=== PATIENT | female | born 1960 | race Caucasian/White ===

== ENCOUNTER 2016-10-01 13:47 | Emergency (ER) | payer OTHER ==
[~2016-10-01] VITALS: Ht 162.6 cm; Wt 69.5 kg
[2016-10-01 13:51] VITALS: Ht 162.6 cm; Wt 69.5 kg
[2016-10-01] MEDS ORDERED: ASPIRIN 325 MG TAB PO STA (14:45)
[2016-10-01] MEDS ORDERED: morphine 2 MG INJ IV STA (14:45)
[2016-10-01] MEDS ORDERED: ONDANSETRON 4 MG INJ IV STA (14:45)
[2016-10-01 15:28] LABS: BASOPHILS % 0.3 % (0.0-2.0); EOSINOPHILS # 0.2 10^3/ul (0.0-0.5); EOSINOPHILS % 1.8 % (0.0-7.0); HEMATOCRIT 37.5 % (37.0-47.0); HEMOGLOBIN 12.6 g/dl (12.0-16.0); LYMPHOCYTES # 0.7 10^3/ul (0.8-2.9); LYMPHOCYTES % 7.4 % (15.0-51.0); MEAN CORPUSCULAR HEMOGLOBIN 29.1 pg (29.0-33.0); MEAN CORPUSCULAR HGB CONC 33.4 g/dl (32.0-37.0); MEAN PLATELET VOLUME 6.8 fl (7.4-10.4); MONOCYTE # 0.7 10^3/ul (0.3-0.9); MONOCYTES % 7.3 % (0.0-11.0); NEUTROPHIL # 7.7 10^3/ul (1.6-7.5); NEUTROPHILS % 83.2 % (39.0-77.0); PLATELET COUNT 294 10^3/UL (140-440); RED BLOOD COUNT 4.31 10^6/ul (4.20-5.40); RED CELL DISTRIBUTION WIDTH 13.9 % (11.5-14.5); UNCORRECTED WBC 9.3 10^3/ul (4.8-10.8); WHITE BLOOD COUNT 9.3 10^3/ul (4.8-10.8)
[2016-10-01 15:30] LABS: CONDITION 1
--- NOTE | 2016-10-01 15:34 | RADRPT ---
PROCEDURE: XR Chest. CLINICAL INDICATION: Patient experiencing Chest Pain. TECHNIQUE: Single frontal view of the chest was obtained. COMPARISON: None. FINDINGS: The cardiomediastinal silhouette is normal size. Pulmonary vasculature is within normal limits. Th e lungs are clear. No signs of pleural fluid or pneumothorax are seen. The osseous structures and soft tissues are unre markable. IMPRESSION: No evidence for active cardiopulmonary disease. RPTAT: DD .Chay Miguel MD, MD Date Time Electronically viewed and signed by .Chay Miguel MD, on 10/01/2016 15:33 .T/
[2016-10-01 15:40] LABS: CREATINE KINASE 71 IU/L (23-200)
[2016-10-01 15:45] LABS: INR 1.06; PROTIME 13.8 Sec (12.2-14.2); PT RATIO 1.1
[2016-10-01 15:46] LABS: PARTIAL THROMBOPLASTIN TIME 27.9 Sec (25.0-35.0)
[2016-10-01 15:50] LABS: CK-MB 1.42 ng/ml (0.0-2.4)
[2016-10-01 15:55] LABS: TROPONIN-I < 0.010 ng/ml (0.00-0.12)
[2016-10-01 16:01] LABS: D-DIMER < 220.00 ng/ml (<460)
[2016-10-01 16:07] LABS: ALBUMIN 4.3 g/dl (3.3-4.9); POTASSIUM 3.7 mmol/L (3.5-5.1)
[2016-10-01 16:09] LABS: CREATININE 0.73 mg/dl (0.44-1.00)
[2016-10-01 16:10] LABS: ALBUMIN/GLOBULIN RATIO 1.38; BILIRUBIN,INDIRECT 0.1 mg/dl (0-1.1); BILIRUBIN,TOTAL 0.1 mg/dl (0.2-1.3); TOTAL PROTEIN 7.4 g/dl (6.1-8.1)
[2016-10-01 16:11] LABS: CALCIUM 9.1 mg/dl (8.4-10.2)
--- NOTE | 2016-10-01 17:34 | ERD ---
ER Documentation Chief Complaint Date/Time DATE: 10/01/16 TIME: 17:28 Chief Complaint chest pain x 2 hrs and nausea HPI Patient is a 56-year-old female who presents to the emergency department complaining of back and chest pain. She states it has been constant since this morning. She cannot describe the pain. She states it is just a "pain". She states nothing makes it better, nothing makes it worse. She denies any fever, coughing, congestion, dyspnea, hemoptysis, chest or back trauma, rhinorrhea, sore throat, or otalgia. She denies any dizziness, loss of consciousness, swelling of the extremities, calf pain. Apparently while she was in the waiting room she began to experience tingling in her hands and feet and the staff became very concerned so they rushed her back. She did not have any objective findings on exam and her symptoms had already resolved by the time that she was brought back. ROS All systems reviewed and are negative except as per history of present illness. Medications Home Meds No Active Prescriptions or Reported Meds Allergies Allergies: Coded Allergies: amoxicillin (Verified Allergy, Intermediate, dizziness, 10/01/16) PMhx/Soc Medical and Surgical Hx: pt denies Medical Hx, pt denies Surgical Hx Hx Alcohol Use: No Hx Substance Use: No Hx Tobacco Use: No Smoking Status: Never smoker FmHx Family History: No diabetes Physical Exam Vitals Vital Signs Date Time Temp Pulse Resp B/P Pulse Ox O2 Delivery O2 Flow Rate FiO2 10/01/16 14:55 Nasal Cannula 2 10/01/16 13:51 97.8 116 20 169/85 99 Physical Exam Const: Well-developed well-nourished female in no acute distress, appears anxious. Head: Atraumatic normocephalic Eyes: Normal Conjunctiva ENT: Normal External Ears, Nose and Mouth. Neck: Full range of motion..~ No meningismus. Resp: Clear to auscultation bilaterally Cardio: Regular rate and rhythm, no murmurs, no tenderness to palpation of the chest wall Abd: Soft, non tender, non distended. Normal bowel sounds Skin: No petechiae or rashes Back: No midline or flank tenderness, no pain on palpation Ext: No cyanosis, or edema, no calf pain negative Homans sign Neur: Awake and alert Psych: Normal Mood and anxious affect Result Diagram: 10/01/16 1500 10/01/16 1500 Results 24 hrs Laboratory Tests Test 10/01/16 15:00 Activated Partial Thromboplast Time 27.9Sec Alanine Aminotransferase (ALT/SGPT) 27IU/L Albumin 4.3g/dl Albumin/Globulin Ratio 1.38 Alkaline Phosphatase 62IU/L Anion Gap 17 Aspartate Amino Transf (AST/SGOT) 19IU/L Basophils # 0.010^3/ul Basophils % 0.3% Blood Morphology Comment Blood Urea Nitrogen 14mg/dl Calcium Level 9.1mg/dl Carbon Dioxide Level 24mmol/L Chloride Level 103mmol/L Creatine Kinase 71IU/L Creatine Kinase Index 2.0 Creatinine 0.73mg/dl Creatinine Kinase MB (Mass) 1.42ng/ml D-Dimer < 220.00ng/ml D-Dimer Comment Direct Bilirubin 0.00mg/dl Eosinophils # 0.210^3/ul Eosinophils % 1.8% Globulin 3.10g/dl Glucose Level 114mg/dl Hematocrit 37.5% Hemoglobin 12.6g/dl INR International Normalized Ratio 1.06 Indirect Bilirubin 0.1mg/dl Lymphocytes # 0.710^3/ul Lymphocytes % 7.4% Mean Corpuscular Hemoglobin 29.1pg Mean Corpuscular Hemoglobin Concent 33.4g/dl Mean Corpuscular Volume 87.0fl Mean Platelet Volume 6.8fl Monocytes # 0.710^3/ul Monocytes % 7.3% Neutrophils # 7.710^3/ul Neutrophils % 83.2% Nucleated Red Blood Cells # 0.010^3/ul Nucleated Red Blood Cells % 0.0/100WBC Platelet Count 93253^3/UL Potassium Level 3.7mmol/L Prothrombin Time 13.8Sec Prothrombin Time Ratio 1.1 Red Blood Count 4.3110^6/ul Red Cell Distribution Width 13.9% Sodium Level 140mmol/L Total Bilirubin 0.1mg/dl Total Protein 7.4g/dl Troponin I < 0.010ng/ml White Blood Count 9.310^3/ul Current Medications Medications (Trade) Dose Ordered Sig/Aldo Route PRN Reason Start Time Stop Time Status Last Admin Dose Admin Aspirin (Aspirin) 325 mg ONCE STAT PO 10/01/16 14:45 10/01/16 14:47 DC 10/01/16 15:05 Morphine Sulfate (morphine) 2 mg ONCE STAT IV 10/01/16 14:45 10/01/16 14:47 DC 10/01/16 15:05 Ondansetron HCl (Zofran Inj) 4 mg ONCE STAT IV 10/01/16 14:45 10/01/16 14:47 DC 10/01/16 15:04 IV Flush 10 ml 10 ml STK-MED ONCE .ROUTE 10/01/16 18:32 10/01/16 18:33 DC 10/01/16 18:44 Sodium Chloride (NS) 100 ml @ ud STK-MED ONCE .ROUTE 10/01/16 18:32 10/01/16 18:33 DC 10/01/16 18:44 Iohexol (Omnipaque 300mg/ ml) 150 ml STK-MED ONCE .ROUTE 10/01/16 18:32 10/01/16 18:33 DC 10/01/16 18:44 Procedures/MDM EKG: Rate/Rhythm: Sinus tachycardia at 109 bpm no acute ischemia noted no PE pattern noted QRS, ST, T-waves: No changes consistent w/ acute ischemia Impression: No evidence of ischemia or arrhythmia Departure Diagnosis: Primary Impression: Chest pain Chest pain type: unspecified Qualified Code: R07.9 - Chest pain, unspecified type Additional Impression: Back pain Back pain location: thoracic back pain Chronicity: acute Back pain laterality: unspecified Qualified Code: M54.6 - Acute thoracic back pain, unspecified back pain laterality Condition: Good Patient Instructions: Back Pain (Acute Or Chronic), Chest Pain, Uncertain Cause Additional Instructions: Please take medications as prescribed and schedule a follow-up appointment with your primary care physician for any further testing might be necessary. Activity as tolerated. Return to the emergency department for any new or worsening symptoms. MERVIN HASKINS Oct 01, 2016 17:34
[2016-10-01] MEDS ORDERED: SOD CHLORIDE 0.9% 100 ML ONE (18:32)
[2016-10-01] MEDS ORDERED: IOHEXOL 300MG/ML 150 ML BTL ONE (18:32)
--- NOTE | 2016-10-01 19:14 | RADRPT ---
PROCEDURE: CT Chest with contrast. CLINICAL INDICATION: Chest pain, back pain. TECHNIQUE: A CT scan of the chest with contrast was performed. Coronal and sagittal reformatted im ages were obtained from the axial source images. 100 cc Omnipaque 300 were administered during exami nation without complication. CTDIvol: 4.96 mGy. Exam DLP: 191.42 mGy-cm. COMPARISON: Chest x-ray dated 10/01/2016. FINDINGS: There is no suspicious thyroid lesion. No thoracic lymphadenopathy is seen. The trachea and mainst em bronchi are patent. The heart is not enlarged. There is no pericardial effusion. There are dependent atelectatic changes in both lungs. A 4 mm nodule is identified in the posterior left lower lobe, nonspecific. Additional 4 mm subpleural nodules are identified in the right middl e and left lower lobes, likely benign. Plate-like atelectasis or scarring is identified in the infer ior right upper lobe. No pulmonary edema or consolidation is identified. There is no pleural effusi on or pneumothorax. Limited evaluation of the upper abdomen is unremarkable. There is no suspicious osseous lesion. No fractures identified. IMPRESSION: 1. Nonspecific 4 mm nodule in the posterior left lower lobe. If the patient is at high risk for jo ann ng cancer, a repeat CT scan should be obtained in 12 months to reassess this finding. Otherwise, no follow-up is necessary. 2. No pulmonary edema or consolidation. 3. No fracture. RPTAT: HTAR .Jason Vázquez MD, Date Time Electronically viewed and signed by .Jason Vázquez MD, MD on 10/01/2016 19:14 .R/
[2016-10-01] MEDS ORDERED: HYDR-906 PO (19:26)
[2016-10-01] MEDS ORDERED: CYCL-319 PO (19:27)
[2016-10-01] MEDS ORDERED: ONDA4TAB8 PO (19:27)
[2016-10-01 20:05] VITALS: BP 126/83; PULSE 71; RESP 18
== END 2016-10-01 20:21 | disposition home or self-care (01) ==
LOC: E/R 13:47
DX: R07.9 Chest pain, unspecified (principal); M54.6 Pain in thoracic spine; R11.0 Nausea
CPT/HCPCS: 36415; 71010; 71260; 80053; 82550; 82553; 84484; 85025; 85378; 85610; 85730; 93005; 96374; 96375; J2270; J2405; Q9967; Z7502; Z7610